=== PATIENT | female | born 1990 | race Caucasian/White ===

== ENCOUNTER 2024-05-01 14:50 | Emergency (ER) | payer SELFPAY ==
[2024-05-01] MEDS ORDERED: Sodium Chloride 0.9% 10 ML Syringe FLUSH PRN (15:19)
[2024-05-01 15:32] LABS: BASOPHILS ABSOLUTE AUTO 0.02 10^3/uL (0.00-0.10); BASOPHILS PERCENT AUTO 0.3 % (0.0-1.0); EOSINOPHILS ABSOLUTE AUTO 0.06 10^3/uL (0.10-0.30); EOSINOPHILS PERCENT AUTO 0.9 % (1.0-3.0); HEMATOCRIT 39.2 % (37.0-47.0); HEMOGLOBIN 13.5 g/dL (12.0-16.0); IMMATURE GRAN ABSOLUTE AUTO 0.02 10^3/uL (0.00-0.50); IMMATURE GRAN PERCENT AUTO 0.3 % (0.0-5.0); LYMPHOCYTES ABSOLUTE AUTO 1.22 10^3/uL (1.00-4.00); LYMPHOCYTES PERCENT AUTO 18.5 % (20.0-40.0); MEAN CORPUSCULAR HEMOGLOBIN 29.2 pg (27.0-31.0); MEAN CORPUSCULAR HGB CONC 34.4 g/dL (32.0-36.0); MEAN CORPUSCULAR VOLUME 84.8 fL (82.0-92.0); MEAN PLATELET VOLUME 10.8 fL (7.4-10.4); MONOCYTES ABSOLUTE AUTO 0.54 10^3/uL (0.10-0.80); MONOCYTES PERCENT AUTO 8.2 % (2.0-8.0); NEUTROPHILS ABSOLUTE AUTO 4.74 10^3/uL (2.50-7.00); NEUTROPHILS PERCENT AUTO 71.8 % (50.0-70.0); PLATELET COUNT,PLT 227 10^3/uL (150-400); RED BLOOD CELL COUNT 4.62 10^6/uL (3.80-5.50); RED CELL DISTRIBUTION WIDTH 12.8 % (11.5-14.5)
[2024-05-01] MEDS: Sodium Chloride 0.9% 1,000 ML IV ONE (15:43)
[2024-05-01 15:49] LABS: ALBUMIN 3.12 g/dL (3.40-5.00); ANION GAP 13.2 mmol/L (5-15); BILIRUBIN TOTAL 0.7 mg/dL (0.2-1.0); CALCIUM 8.6 mg/dL (8.7-10.3); CARBON DIOXIDE,CO2 26.6 mmol/L (21.0-32.0); CREATININE 0.73 mg/dL (0.51-1.17); EST CRCL DRUG DOSING (CG) 106.59 mL/min; POTASSIUM,K 3.8 mmol/L (3.5-5.1); PROTEIN TOTAL,TP 7.4 g/dL (6.4-8.2)
[2024-05-01] MEDS: Promethazine 25 MG in Sodium Chloride 0.9% 100 ML IV ONE (15:50)
[2024-05-01 15:53] LABS: APPEARANCE,URINE CLEAR (CLEAR); BILIRUBIN,URINE NEGATIVE (NEGATIVE); COLOR,URINE YELLOW (YELLOW); GLUCOSE,URINE NEGATIVE (NEGATIVE); KETONES,URINE NEGATIVE (NEGATIVE); LEUKOCYTE ESTERASE,URINE NEGATIVE (NEGATIVE); NITRITE,URINE NEGATIVE (NEGATIVE); OCCULT BLOOD,URINE NEGATIVE (NEGATIVE); PH,URINE 6.5 (5.0-9.0); PROTEIN,URINE NEGATIVE (NEGATIVE); UROBILINOGEN,URINE 0.2 E.U./dL (0.2-1.0)
[2024-05-01] MEDS: Sodium Chloride 0.9% 50 ML IV SCH (16:07)
[2024-05-01] MEDS: Iopamidol 755 Mg/ML 100 ML Bottle IV ONE (16:07)
== END 2024-05-01 17:43 | disposition home or self-care (01) ==
LOC: KA.ED 14:50
DX: K57.32 Diverticulitis of large intestine without perforation or abscess without bleeding (principal); R19.4 Change in bowel habit; Z79.899 Other long term (current) drug therapy; Z88.0 Allergy status to penicillin; Z88.2 Allergy status to sulfonamides
CPT/HCPCS: 36415; 74177; 80053; 81003; 82150; 83690; 85025; 96361; 96365; 99284; J2550; J3490; J7030; Q9967